=== PATIENT | male | born 1965 | race Hispanic/Latino ===

== ENCOUNTER 2017-09-11 19:37 | Emergency (ER) | payer BC ==
[2017-09-11 21:04] LABS: Urine Blood 2+ (NEG); Urine Glucose NEGATIVE (NEG); Urine Protein 1+ (NEG)
[2017-09-11 21:09] LABS: Urine Bacteria 20-50 /HPF (NONE SEEN); Urine Culture Reflex Order REFLEXED; Urine RBC 20-50 /HPF (NONE SEEN)
[2017-09-11 21:40] LABS: Absolute Lymphocytes (CBC) 0.9 K/uL (0.7-4.9); Absolute Monocytes 0.7 K/uL (0.1-1.3); Absolute Neutrophil 10.2 K/uL (1.8-8.0); Basophils % 0.2 % (0-1.3); Eosinophils % 0.2 % (0-4.4); Hematocrit 40.6 % (39.6-49.0); Lymphocytes % 7.6 % (15.3-44.8); MCH 31.3 pg (27.0-35.0); MCV 90.5 fL (80-100); MPV 9.5 fL (7.6-11.3); Monocytes % 6.2 % (3.3-12.3); RBC Red Blood Cell Count 4.49 M/uL (4.33-5.43)
[2017-09-11] MEDS ORDERED: NA CHLORIDE 0.9% 1,000 ML ONE ×2 (21:47→22:04)
[2017-09-11 21:53] LABS: Potassium 3.9 mEq/L (3.6-5.0)
[2017-09-11 21:59] LABS: Albumin 4.3 g/dL (3.2-5.5); Bilirubin Direct 0.2 mg/dL (0-0.2); Bilirubin Total 1.1 mg/dL (0.3-1.2); Protein, Total 9.1 g/dL (6.0-8.3)
[2017-09-11] MEDS ORDERED: ACETAMINOPHEN 500 MG TAB ONE (22:03)
[2017-09-11] MEDS ORDERED: CEFTRIAXONE/SWI 1gm 1 GM/10 ML SYR ONE ×2 (22:04→22:14)
[2017-09-12] MEDS ORDERED: levoFLOXacin 750 MG TAB ONE (00:18)
--- NOTE | 2017-09-12 00:31 | ER ---
Nurse's Notes [facility] Name: Li Lund Age: 52 yrs Sex: Male : 1965 Arrival Date: 09/11/2017 Time: 19:42 Bed 27 Private MD: Paco Thomas T Diagnosis: Cystitis Presentation: 09/11 20:01 Presenting complaint: Patient states: "I have a headache and my eyes are burning. My lk1 says I have a 102 fever. It hurts when I pee.". Transition of care: patient was not received from another setting of care. Onset of symptoms was September 11, 2017 at 09:00. Initial Sepsis Screen: Does the patient meet any 2 criteria?. Care prior to arrival: None. 20:01 Method Of Arrival: Ambulatory lk1 20:01 Acuity: NICKOLAS 3 lk1 20:07 Initial Sepsis Screen: Does the patient meet any 2 criteria? Temp <36.0*C (96.8*F)) or lk1 > 38.3*C (100.4*F). HR > 90 bpm. Does the patient have a suspected source of infection? Yes: Dysuria/Frequency/Urgency/UTI If YES to both, name of provider notified: Adrien Hernandez MD. Triage Assessment: 20:03 General: Appears in no apparent distress. Behavior is calm, cooperative, appropriate lk1 for age. Pain: Complains of pain in suprapubic area Pain currently is 7 out of 10 on a pain scale. GI: Patient currently denies diarrhea, nausea, vomiting. : Reports burning with urination, incontinence, inability to void, pain urgency, urinary frequency. Historical: - Allergies: 20:03 No Known Allergies; lk1 - PMHx: 20:03 neuropathy; high protein in blood; lk1 - PSHx: 20:03 jaci knee replacement; Cholecystectomy; lk1 - Immunization history:: Adult Immunizations up to date. - Social history:: Smoking status: Patient/guardian denies using tobacco. Screenin:29 Abuse screen: Denies threats or abuse. Nutritional screening: No deficits noted. tl3 Tuberculosis screening: No symptoms or risk factors identified. Fall Risk None identified. Assessment: 20:29 General: Appears in no apparent distress. comfortable, Behavior is calm, cooperative, mb3 appropriate for age. Pain: Denies pain. Neuro: No deficits noted. Cardiovascular: No deficits noted. Respiratory: No deficits noted. Airway is patent Respiratory effort is even, unlabored, Respiratory pattern is regular, symmetrical. GI: No signs and/or symptoms were reported involving the gastrointestinal system. Bowel sounds present X 4 quads. Abd is soft and non tender. : No signs and/or symptoms were reported regarding the genitourinary system. EENT: No signs and/or symptoms were reported regarding the EENT system. 20:29 : Reports burning with urination, urinary frequency. Derm: No signs and/or symptoms tl3 reported regarding the dermatologic system. Musculoskeletal: No signs and/or symptoms reported regarding the musculoskeletal system. 21:42 Reassessment: No changes from previously documented assessment. Patient and/or family tl3 updated on plan of care and expected duration. Pain level reassessed. Patient is alert, oriented x 3, equal unlabored respirations, skin warm/dry/pink. pt c/o headache. 09/12 00:21 Reassessment: Patient appears in no apparent distress at this time. Patient and/or mb3 family updated on plan of care and expected duration. Pain level reassessed. Patient is alert, oriented x 3, equal unlabored respirations, skin warm/dry/pink. Patient states feeling better. Vital Signs: 09/11 20:04 BP 125 / 73; Pulse 105; Resp 16; Temp 100.6(TE); Pulse Ox 98% on R/A; Weight 73.03 kg lk1 (R); Height 5 ft. 4 in. (162.56 cm) (R); Pain 7/10; 21:42 BP 134 / 75; Pulse 90; Resp 16; Pulse Ox 98% ; tl3 19 00:20 BP 102 / 62; Pulse 57; Resp 16; Temp 98.8(O); Pulse Ox 97% on R/A; mb3 09/11 20:04 Body Mass Index 27.64 (73.03 kg, 162.56 cm) lk1 ED Course: 09/11 19:42 Patient arrived in ED. es 19:42 Paco Thomas MD is Private Physician. es 20:02 Triage completed. lk1 20:07 Arm band placed on left wrist. lk1 20:19 Blanca Duckworth, ROSALINA is Primary Nurse. tl3 20:20 Adrien Wilson PA is PHCP. cp 20:20 Adrien Hernandez MD is Attending Physician. cp 20:21 Primary Nurse role handed off by Blanca Duckworth, RN mb3 20:21 Song Salcido, ROSALINA is Primary Nurse. mb3 20:29 No apparent distress. tl3 20:29 Patient has correct armband on for positive identification. Placed in gown. Bed in low tl3 position. Call light in reach. Side rails up X 1. Pulse ox on. NIBP on. Door closed. Warm blanket given. 20:29 No provider procedures requiring assistance completed. tl3 20:35 Inserted saline lock: 20 gauge in right antecubital area, using aseptic technique. eb Blood collected. 21:42 Urine Dipstick--Ancillary (enter results) Sent. tl3 22:[address] via wheelchair. mw3 22:50 CT Abd/Pelvis - W/Contrast In Process Unspecified. EDMS 09/12 00:30 Leah Correa MD is Referral Physician. cp 00:54 IV discontinued, intact, bleeding controlled, No redness/swelling at site. Pressure mb3 dressing applied. Administered Medications: 09/11 20:51 Drug: NS 0.9% 1000 ml Route: IV; Rate: 1 bolus; Site: right antecubital; Delivery: tl3 Primary tubing; 21:43 Follow up: IV Status: Completed infusion; IV Intake: 1000ml tl3 22:11 Drug: Rocephin - (cefTRIAXone) 2 grams Route: IVPB; Infused Over: 10 mins; Site: left tl3 antecubital; 23:42 Follow up: IV Status: Completed infusion; IV Intake: 40ml tl3 22:11 Drug: NS 0.9% 1000 ml Route: IV; Rate: 125 ml/hr; Site: left antecubital; Delivery: tl3 Primary tubing; 09/12 00:56 Follow up: Response: No adverse reaction mb3 09/11 22:12 Drug: Tylenol 1000 mg Route: PO; tl3 23:42 Follow up: Response: No adverse reaction; Pain is decreased tl3 09/12 00:20 Drug: LevaQUIN 750 mg Route: PO; mb3 00:56 Follow up: Response: No adverse reaction mb3 Point of Care Testing: Blood Glucose: 09/11 20:42 Blood Glucose: 93 mg/dL; eb Ranges: Intake: 21:43 IV: 1000ml; Total: 1000ml. tl3 23:42 IV: 40ml; Total: 1040ml. tl3 Output: 09/12 00:54 Urine: 1000ml (Voided); Total: 1000ml. mb3 Outcome: 00:30 Discharge ordered by MD. cp 00:55 Discharged to home ambulatory, with family. mb3 00:55 Condition: stable 00:55 Discharge instructions given to patient, family, Instructed on discharge instructions, follow up and referral plans. medication usage, Demonstrated understanding of instructions, follow-up care, medications, Prescriptions given X 3. 00:55 Patient left the ED. mb3 Addendum: 09/14/2017 10:48 Addendum: Culture Results: Positive urine culture. No further action required. Bacteria i w sensitive to prescribed antibiotic. Signatures: Dispatcher [employer] EDLatesha Pastrana Irene, RN RN iw Adrien Wilson PA PA cp Kluge, Leah, RN RN lk1 Blanca Duckworth RN RN tl3 Trista Hull Mark RN RN mb3 Elise Thorpe 3
--- NOTE | 2017-09-12 00:31 | EDPHYS ---
Physician Documentation [facility] Name: Li Lund Age: 52 yrs Sex: Male : 1965 Arrival Date: 09/11/2017 Time: 19:42 Bed 27 Private MD: Paco Thomas T ED Physician Adrien Hernandez HPI: 09/11 20:45 This 52 yrs old Male presents to ER via Ambulatory with complaints of Fever, cp Abdominal Pain. 20:45 The patient reports fever, that was measured at 102 degrees Fahrenheit. Onset: The cp symptoms/episode began/occurred today. 20:45 Associated signs and symptoms: Pertinent positives: abdominal pain, headache, dysuria, cp Pertinent negatives: altered mental status, chest pain, cough, diarrhea, skin rash, vomiting, neck stiffness. Severity of symptoms: in the emergency department the symptoms are unchanged despite home interventions. Historical: - Allergies: 20:03 No Known Allergies; lk1 - PMHx: 20:03 neuropathy; high protein in blood; lk1 - PSHx: 20:03 jaci knee replacement; Cholecystectomy; lk1 - Immunization history:: Adult Immunizations up to date. - Social history:: Smoking status: Patient/guardian denies using tobacco. ROS: 20:50 Constitutional: Positive for chills, fever, Negative for body aches, poor PO intake. cp 20:50 Eyes: Negative for injury, pain, redness, and discharge. cp 20:50 ENT: Negative for drainage from ear(s), ear pain, sore throat, difficulty swallowing, difficulty handling secretions. 20:50 Neck: Negative for injury or acute deformity, stiffness, swollen nodes, tenderness. 20:50 Cardiovascular: Negative for chest pain, edema, palpitations. 20:50 Respiratory: Negative for cough, shortness of breath, wheezing. 20:50 Abdomen/GI: Positive for abdominal pain, Negative for vomiting, diarrhea, constipation, anorexia, black/tarry stool, rectal bleeding. 20:50 Back: Negative for pain at rest, pain with movement, radiated pain. 20:50 : Positive for urinary symptoms, Negative for testicular pain 20:50 Skin: Negative for cellulitis, rash. 20:50 Neuro: Positive for headache, Negative for altered mental status, weakness. 20:50 All other systems are negative. Exam: 20:55 Constitutional: The patient appears in no acute distress, alert, awake, cp non-diaphoretic, non-toxic, well developed, well nourished. 20:55 Head/Face: Normocephalic, atraumatic. Eyes: Pupils equal round and reactive to light, cp extra-ocular motions intact. Lids and lashes normal. Conjunctiva and sclera are non-icteric and not injected. Cornea within normal limits. Periorbital areas with no swelling, redness, or edema. ENT: Nares patent. No nasal discharge, no septal abnormalities noted. Tympanic membranes are normal and external auditory canals are clear. Oropharynx with no redness, swelling, or masses, exudates, or evidence of obstruction, uvula midline. Mucous membranes moist. Neck: Trachea midline, no thyromegaly or masses palpated, and no cervical lymphadenopathy. Supple, full range of motion without nuchal rigidity, or vertebral point tenderness. No Meningismus. Chest/axilla: Normal chest wall appearance and motion. Nontender with no deformity. No lesions are appreciated. 20:55 Cardiovascular: Rate: tachycardic, Rhythm: regular, Edema: is not appreciated, JVD: is not appreciated. 20:55 Respiratory: the patient does not display signs of respiratory distress, Respirations: normal, no use of accessory muscles, no retractions, no splinting, no tachypnea, labored breathing, is not present, Breath sounds: are clear throughout, no decreased breath sounds, no stridor, no wheezing. 20:55 Abdomen/GI: Inspection: abdomen appears normal, Bowel sounds: active, all quadrants, Palpation: soft, in all quadrants, moderate abdominal tenderness, in the suprapubic area, rebound tenderness, is not appreciated, voluntary guarding, is elicited in the suprapubic area. 20:55 Back: CVA tenderness, is absent. 20:55 Skin: cellulitis, is not appreciated, no rash present. 20:55 Neuro: Orientation: to person, place \T\ time. Mentation: is normal, Cerebellar function: is grossly normal, Motor: moves all fours, strength is normal, Sensation: no obvious gross deficits. Vital Signs: 20:04 BP 125 / 73; Pulse 105; Resp 16; Temp 100.6(TE); Pulse Ox 98% on R/A; Weight 73.03 kg lk1 (R); Height 5 ft. 4 in. (162.56 cm) (R); Pain 7/10; 21:42 BP 134 / 75; Pulse 90; Resp 16; Pulse Ox 98% ; tl3 09/12 00:20 BP 102 / 62; Pulse 57; Resp 16; Temp 98.8(O); Pulse Ox 97% on R/A; mb3 09/11 20:04 Body Mass Index 27.64 (73.03 kg, 162.56 cm) lk1 MDM: 09/11 20:35 Patient medically screened. cp 21:00 Differential diagnosis: URI, pneumonia UTI, gastroenteritis, meningitis, prostatitis, cp sepsis. 09/12 00:25 Data reviewed: vital signs, nurses notes, lab test result(s), radiologic studies, CT cp scan, and as a result, I will discharge patient. 00:25 Counseling: I had a detailed discussion with the patient and/or guardian regarding: the cp historical points, exam findings, and any diagnostic results supporting the discharge/admit diagnosis, lab results, radiology results, the need for outpatient follow up, a urologist, to return to the emergency department if symptoms worsen or persist or if there are any questions or concerns that arise at home. Response to treatment: the patient's symptoms have markedly improved after treatment, VSS. Fever resolved, pain improved. Will discharge to home for continued monitoring. 09/11 20:29 Order name: UA MICROSCOPIC; Complete Time: 21:44 tl3 09/11 21:45 Interpretation: Normal except: UWBC >50; URBC 20-50; UBACT 20-50. cp 09/11 20:43 Order name: Glucose, Ancillary Testing; Complete Time: 20:49 EDMS 09/11 20:49 Order name: Amylase, Serum; Complete Time: 22:42 cp 09/11 20:49 Order name: Basic Metabolic Panel; Complete Time: 22:42 cp 09/11 22:42 Interpretation: Normal except: NA 133; CL 98; GFR 70. cp 09/11 20:49 Order name: CBC with Diff; Complete Time: 21:44 cp 09/11 21:45 Interpretation: Normal except: WBC 11.9; JIMY% 85.8; LYM% 7.6; NEUT A 10.2. cp 09/11 20:49 Order name: Creatinine for Radiology; Complete Time: 22:42 cp 09/11 20:49 Order name: Hepatic Function; Complete Time: 22:42 cp 09/11 22:44 Interpretation: Normal except: TP 9.1; GLOB 4.8; A/G 0.9. cp 09/11 20:49 Order name: Lipase; Complete Time: 22:42 cp 09/11 20:51 Order name: CT Abd/Pelvis - W/Contrast cp 09/11 20:59 Order name: Urine Dipstick--Ancillary (enter results) rg2 09/11 21:00 Order name: Urine Dipstick-Ancillary; Complete Time: 21:44 EDMS 09/11 21:10 Order name: Urine Culture EDMS 09/11 20:49 Order name: IV Saline Lock; Complete Time: 20:51 cp 09/11 20:49 Order name: Labs collected and sent; Complete Time: 20:51 cp 09/11 20:49 Order name: Urine Dipstick-Ancillary (obtain specimen); Complete Time: 20:51 cp 09/11 23:49 Order name: Vital Signs: to include temp; Complete Time: 00:20 cp Administered Medications: 09/11 20:51 Drug: NS 0.9% 1000 ml Route: IV; Rate: 1 bolus; Site: right antecubital; Delivery: tl3 Primary tubing; 21:43 Follow up: IV Status: Completed infusion; IV Intake: 1000ml tl3 22:11 Drug: Rocephin - (cefTRIAXone) 2 grams Route: IVPB; Infused Over: 10 mins; Site: left tl3 antecubital; 23:42 Follow up: IV Status: Completed infusion; IV Intake: 40ml tl3 22:11 Drug: NS 0.9% 1000 ml Route: IV; Rate: 125 ml/hr; Site: left antecubital; Delivery: tl3 Primary tubing; 09/12 00:56 Follow up: Response: No adverse reaction 3 09/11 22:12 Drug: Tylenol 1000 mg Route: PO; tl3 23:42 Follow up: Response: No adverse reaction; Pain is decreased 3 09/12 00:20 Drug: LevaQUIN 750 mg Route: PO; mb3 00:56 Follow up: Response: No adverse reaction 3 Point of Care Testing: Blood Glucose: 09/11 20:42 Blood Glucose: 93 mg/dL; eb Ranges: Critical Glucose Levels:Adult <50 mg/dl or >400 mg/dl <40 mg/dl or >180 mg/dl Disposition: 09/12/17 00:30 Discharged to Home. Impression: Cystitis. - Condition is Stable. - Discharge Instructions: Urinary Tract Infection. - Prescriptions for Ibuprofen 800 mg Oral Tablet - take 1 tablet by ORAL route every 8 hours As needed take with food; 30 tablet. Levaquin 750 mg Oral Tablet - take 1 tablet by ORAL route once daily for 10 days start medication evening of 09-12-2017; 9 tablet. Zofran 4 mg Oral Tablet - take 1 tablet by ORAL route every 12 hours As needed; 20 tablet. - Medication Reconciliation Form, Thank You Letter, Antibiotic Education, Prescription Opioid Use form. - Follow up: Leah Correa MD; When: 2 - 3 days; Reason: Recheck today's complaints. - Problem is new. - Symptoms have improved. Addendum: 09/14/2017 07:42 Co-signature as Attending Physician, Adrien Hernandez MD I agree with the assessment and c amador plan of care. Signatures: Dispatcher [employer] EDAdrien Virk MD MD cha Page, Corey, PA PA cp Isabel Tang, RN RN lk1 Blanca Duckworth, RN RN tl3 Song Salcido, RN RN mb3 Corrections: (The following items were deleted from the chart) 09/12 00:55 00:30 09/12/2017 00:30 Discharged to Home. Impression: Cystitis. Condition is Stable. mb3 Forms are Medication Reconciliation Form, Thank You Letter, Antibiotic Education, Prescription Opioid Use. Follow up: Leah Correa; When: 2 - 3 days; Reason: Recheck today's complaints. Problem is new. Symptoms have improved. cp
--- NOTE | 2017-09-12 08:28 | RAD REPORT ---
EXAM DESCRIPTION: CT - Abdomen Pelvis W Contrast - 09/12/2017 6:32 am CLINICAL HISTORY: Abdominal pain, dysuria, fever A preliminary written report was provided at the time of the study, and the report was reviewed prio r to final dictation. COMPARISON: None. TECHNIQUE: Biphasic, helical CT imaging of the abdomen and pelvis was performed following 100 ml non -ionic IV contrast. Oral contrast was given. All CT scans are performed using dose optimization technique as appropriate and may include automated exposure control or mA/KV adjustment according to patient size. FINDINGS: No suspicious findings in the lung bases. The liver, spleen, and pancreas show no focal findings. Mild diffuse fatty infiltration is present. C holecystectomy clips are present with no biliary tree dilatation. Symmetric renal function is seen with no hydronephrosis or suspicious renal mass. No pyelonephritis o r acute renal parenchymal process. Urinary bladder is only partially filled. Bladder cunha are mildly prominent and do show some subtle enhancement. Congestion or edema is present around a mildly enlarged prostate gland. Seminal vesicles are prominent. Is congestion and edema in the fat along the margins of the prostate gland. No dilated bowel loops or bowel wall thickening. No appendicitis. No free air, free fluid or inflamma tory stranding. No mass or bulky lymphadenopathy. Fat extends into the origin of each inguinal canal . No adrenal abnormality. No suspicious bony findings. IMPRESSION: Suspected prostatitis/cystitis with no pyelonephritis. Mild diffuse fatty infiltration of the liver. Cholecystectomy with no biliary tree dilatation. Diverticulosis is present in the left side colon but no diverticulitis or acute GI process suspected.
== END 2017-09-12 00:55 | disposition home or self-care (01) ==
LOC: ER 19:37
DX: N30.90 Cystitis, unspecified without hematuria (principal)
CPT/HCPCS: 36415; 74177; 80048; 80076; 81003; 81015; 82150; 82962; 83690; 85025; 87077; 87086; 87088; 87186; 96361; 96365; 96366; 99284; J0696; J7030; Q9967